=== PATIENT | male | born 1990 | race Caucasian/White ===

== ENCOUNTER 2018-03-14 13:39 | Emergency (ER) | payer OTHER ==
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
[2018-03-14] MEDS ORDERED: NS 0.9% 1000 ML* 1,000 ML IV ONE (14:40)
[2018-03-14 14:45] VITALS: BP 154/97
== END 2018-03-14 14:52 | disposition short-term general hospital (02) ==
LOC: UCEAST 13:39
DX: M54.2 Cervicalgia (principal); R07.89 Other chest pain; W11.XXXA Fall on and from ladder, initial encounter; Y92.9 Unspecified place or not applicable
CPT/HCPCS: 96360; 99213; G0463

== ENCOUNTER 2018-03-14 15:17 | Emergency (ER) | payer OTHER ==
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
[2018-03-14 15:50] LABS: ABS Basophils 0.1 10^3/ul (0-0.2); ABS Eosinophils 0.3 10^3/ul (0-0.6); ABS Lymphocytes 1.6 10^3/ul (1.0-4.8); ABS Monocytes 0.8 10^3/ul (0-0.8); ABS Neutrophils 7.7 10^3/ul (1.5-7.7); ABS Nucleated RBC 0 10^3/ul; Hematocrit 49 % (42-52); Hemoglobin 16.6 g/dl (14.0-18.0); Lymphocyte % 15.4 %; Mean Corpuscular HGB Conc 34 g/dl (31-36); Mean Corpuscular Hemoglobin 28 pg (27-31); Mean Corpuscular Volume 83 fL (80-94); Nucleated Red Blood Cells % 0.3; Platelet Count 299 10^3/ul (150-450); Red Blood Count 5.84 10^6/ul (4.00-5.40); Red Cell Distribution Width 13 % (10.5-15); White Blood Count 10.6 10^3/ul (3.5-10.8)
[2018-03-14 15:57] LABS: INR 0.98 (0.77-1.02)
[2018-03-14] MEDS ORDERED: Iohexol 300* (CONTRAST) 10 ML SDV IV ONE (16:15)
[2018-03-14] MEDS ORDERED: Ibuprofen TAB* 600 MG PO ONE (17:02)
[2018-03-14] MEDS ORDERED: Cyclobenzaprine TAB* 10 MG PO ONE (17:02)
[2018-03-14 18:21] VITALS: BP 119/75
== END 2018-03-14 18:18 | disposition home or self-care (01) ==
LOC: ED 15:17
DX: M54.2 Cervicalgia (principal); W11.XXXA Fall on and from ladder, initial encounter; Y92.9 Unspecified place or not applicable
CPT/HCPCS: 36415; 70450; 71260; 72125; 72128; 74177; 80053; 82550; 83605; 85025; 85610; 96374; 99284; Q9967